=== PATIENT | male | born 1995 | race Caucasian/White ===

== ENCOUNTER 2018-07-23 11:48 | Emergency (ER) | payer OTHER ==
[~2018-07-23] VITALS: Ht 177.8 cm; Wt 87.3 kg
[2018-07-23 13:48] VITALS: BP 125/69
[2018-07-23] MEDS ORDERED: AUGM875T28 PO (13:53)
== END 2018-07-23 14:00 | disposition home or self-care (01) ==
LOC: M ED 11:48
DX: J06.9 Acute upper respiratory infection, unspecified (principal); R51 Headache; F17.210 Nicotine dependence, cigarettes, uncomplicated

== ENCOUNTER 2020-06-14 06:57 | Emergency (ER) | payer OTHER ==
[~2020-06-14] VITALS: Ht 177.8 cm; Wt 84.1 kg
[2020-06-14 06:57] VITALS: BP 134/82
[~2020-06-14 06:57] MED LIST: AUGM875T28 PO
[2020-06-14] MEDS ORDERED: ONDA4TAB6 PO (09:00)
[2020-06-14] MEDS ORDERED: TESS100C PO (09:00)
== END 2020-06-14 09:13 | disposition home or self-care (01) ==
LOC: M ED 06:57
DX: J06.9 Acute upper respiratory infection, unspecified (principal); F17.200 Nicotine dependence, unspecified, uncomplicated
CPT/HCPCS: 87804; 99283; U0003